=== PATIENT | male | born 1970 | race African-American/Black ===

== ENCOUNTER → 2016-11-21 | Outpatient (CLI) | payer BC ==
--- NOTE | 2016-11-21 19:19 | PN ---
DATE OF SERVICE: 11/21/2016 A 45-year-old gentleman who has been followed in the sleep center for treatment of obstructive sleep apnea/hypopnea syndrome. Recently patient had been diagnosed with the obstructive sleep apnea-hypopnea syndrome and I discussed results of the sleep studies with him in detail. Apnea-hypopnea index 29.1, which is close to severe, with oxygen desaturation to 84.2%. Patient is on treatment with CPAP with a pressure of 10 cm of water. I checked his CPAP unit. Usage is 28 out of 30 nights with 20 out of 30 nights for more than 4 hours. Apnea-hypopnea index reading from the machine is only 0.5 per hour. No snoring with the machine. At the same time, patient still continued to wake up in the morning around 4:00 a.m. instead of 6:45 a.m. [place] Sleepiness Scale is 10. MEDICATIONS: 1. Amaryl. 2. Glucophage. 3. Losartan. During physical exam, patient in no distress. BP 126/71, HR 66, RR 16. Weight 319. Temp 98.0. Oxygen saturation at room air 96%. OROPHARYNX: Low soft palate. NECK: Supple. No JVD. Thyroid is not palpable. LUNGS: Clear to percussion and to auscultation. Good air exchange. No wheezing or rhonchi. HEART: S1, S2 regular. No murmurs, gallops or rubs. ABDOMEN: Soft and nontender. Bowel sounds are present. No organomegaly appreciated. EXTREMITIES: No clubbing or cyanosis. BUS STARTER: Awake, alert, and oriented x3. Cranial nerves 2 to 7 intact. There is no fasciculation or atrophy noted. No focal deficits observed. IMPRESSION: 1. Moderate, close to severe obstructive sleep apnea-hypopnea syndrome on control with continuous positive airway pressure at 10 cm of water. 2. Patient continues to wake up from sleep earlier than he wishes, although no significant amount of periodic limb movements during the sleep study, no significant problem with falling asleep at the beginning of the night, but again, awakenings from the second part of the night with difficulties to re-initiate sleep again. 3. Obesity. 4. Diabetes mellitus. 5. Hypertension. PLAN: 1. Continue treatment with CPAP night for the whole night. Patient benefiting from treatment. 2. Losing weight. 3. Sleep hygiene with regular time in bed from around 10:00 p.m. until 6:00 a.m. 4. Will try small doses of Ambien at bedtime. Usage of short-acting sleeping pills on the second part of the night probably will not work because after awakenings, the patient has only 2 hours before he has to go out of bed. 5. No driving if feeling any sleepiness. Thank you very much for allowing me to participate in the management your patient. Sincerely, Flash Garcia MD, PhD, FAASM. Diplomat of [place] [employer], Sleep Medicine Board by [place] [employer] [place] [employer] Change Analyst of [facility]
== END | disposition home or self-care (01) ==
LOC: SLEEP 14:18
PROVIDERS: ATTEND Internal Medicine
DX: G47.33 Obstructive sleep apnea (adult) (pediatric) (principal); E66.9 Obesity, unspecified; E11.9 Type 2 diabetes mellitus without complications; I10 Essential (primary) hypertension; Z79.899 Other long term (current) drug therapy

== ENCOUNTER → 2017-12-09 | Outpatient (CLI) | payer BC ==
--- NOTE | 2017-12-09 11:09 | XR ---
EXAMINATION TYPE: XR knee complete RT DATE OF EXAM: 12/09/2017 COMPARISON: NONE HISTORY: Pain TECHNIQUE: 3 views are submitted. FINDINGS: There is narrowing of the medial compartment knee joint. Narrowing of the patellofemoral joint noted. Chronic fragmentation of the tibial tubercle seen. Hypertrophic change involving the anterior margin of the patella. Small amount of fluid in the suprapatellar bursa.. Osseous structures are intact. No acute fracture seen. IMPRESSION: 1. No acute fracture or dislocation. 2. Mild osteoarthritis. There is a small amount of fluid in the suprapatellar bursa. If there is conc eliane for internal derangement of the knee correlate with MRI.
== END ==
LOC: RADXRMAIN 10:43
PROVIDERS: ATTEND Internal Medicine
DX: M19.90 Unspecified osteoarthritis, unspecified site (principal)

== ENCOUNTER → 2017-12-27 | Outpatient (CLI) | payer BC ==
--- NOTE | 2017-12-27 16:36 | MR ---
EXAMINATION TYPE: MR knee RT wo con DATE OF EXAM: 12/27/2017 COMPARISON: Plain film 12/09/2017 HISTORY: Right knee pain TECHNIQUE: Multiplanar, multisequence imaging of the right knee is performed without IV contrast. FINDINGS: MEDIAL MENISCUS: Posterior horn of the medial meniscus shows abnormal increased signal which extends the articular surface and is attenuated. Anterior horn is intact. LATERAL MENISCUS: Anterior and posterior horns are intact without tear. CRUCIATE LIGAMENTS: Some increased signal along the course of the anterior cruciate ligament may repr esent a strain near its insertion or possibly partial tear. Posterior cruciate ligament shows abnorma l fluid signal near its origin which may represent a ganglion or possible prior tear COLLATERAL LIGAMENTS: Abnormal increased signal present along the medial collateral ligament and T2-w eighted sequences is compatible with strain or possibly partial tear. I question meniscal capsule sep aration. EXTENSOR MECHANISM: Visualized quadriceps and patellar tendons are intact. EFFUSION: Suprapatellar joint effusion is present. POPLITEAL CYST: Some fluid signal is present along the semimembranosus gastrocnemius bursa region po ssibly due to ruptured Giang's cyst, no discernible mass. 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 Possible strain or partial tear along the cruciate ligaments, medial collateral ligament. There is a joint effusion. Suspect some osteoarthritic change.
== END | disposition home or self-care (01) ==
LOC: RADMRIMAIN 14:05
PROVIDERS: ATTEND Internal Medicine
DX: S83.241A Other tear of medial meniscus, current injury, right knee, initial encounter (principal)

== ENCOUNTER → 2019-01-01 | Outpatient (CLI) | payer BC ==
[2019-01-01 08:54] LABS: Blood Urea Nitrogen 11 mg/dL (9-20)
--- NOTE | 2019-01-01 10:23 | CT ---
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 CT DLP: 2686.60 mGycm, Automated Exposure Control for Dose Reduction was Utilized. CONTRAST: CT scan of the abdomen and pelvis is performed with oral and with IV Contrast, patient injected with 100 ml mL of Isovue 300. FINDINGS: LUNG BASES: No significant abnormality is appreciated. LIVER/GB: Liver is diffusely low dense suggesting fatty infiltration. PANCREAS: No significant abnormality is seen. SPLEEN: No significant abnormality is seen. ADRENALS: No significant abnormality is seen. KIDNEYS:. Simple appearing 2.1 cm cyst anteriorly upper pole level left kidney. BOWEL: Oral contrast reaches level of the transverse colon. No suspicious small or large bowel dilata tion. PROSTATE/SEMINAL VESICLES: No gross abnormality seen. LYMPH NODES: No greater than 1cm abdominal or pelvic lymph nodes are appreciated. OSSEOUS STRUCTURES: Moderate to severe disc space narrowing with endplate sclerosis and moderate spur ring L5-S1 level. OTHER: Large fat-containing umbilical hernia is present axial image 62. In the right posterior lateral lower abdominal subcutaneous fat. Poorly defined heterogeneous hyperde nse soft tissue mass measuring 8.9 cm transversely by by 0.2 cm AP diameter X image 57 by approximate ly 6.2 cm craniocaudal dimension coronal image 95 with smaller adjacent soft tissue nodules particula rly along medial inferior aspect , one of largest nodules measures 3.5 x 2.2 cm axial image 64. One n odule gets close to the lateral thoracic muscles axial image 65. No suspicious intraperitoneal or ret roperitoneal masses are identified. IMPRESSION: 1. Presumed posterior right mid abdominal subcutaneous irregular soft tissue mass with satellite nodu les reflects known neoplasm. No suspicious intra-abdominal or intrapelvic masses or adenopathy noted.
== END | disposition home or self-care (01) ==
LOC: RADCTMAIN 07:22
PROVIDERS: ATTEND Internal Medicine
DX: D20.0 Benign neoplasm of soft tissue of retroperitoneum (principal)
CPT/HCPCS: 82565; 84520; 74177; 36415; Q9967

== ENCOUNTER → 2019-09-03 | Outpatient (CLI) | payer BC ==
[2019-09-03 08:33] LABS: Basophils % (A) 1 %; Eosinophils # (A) 0.3 k/uL (0-0.7); Eosinophils % (A) 4 %; HGB 16.2 gm/dL (13.0-17.5); Lymphocytes # (A) 2.7 k/uL (1.0-4.8); Lymphocytes % (A) 44 %; MCH 30.8 pg (25.0-35.0); MCHC 33.8 g/dL (31.0-37.0); Mean Platelet Volume 8.2; Monocytes # (A) 0.4 k/uL (0-1.0); Monocytes % (A) 6 %; Neutrophils # (A) 2.6 k/uL (1.3-7.7); Neutrophils % (A) 44 %; Platelet Count 195 k/uL (150-450); RBC 5.27 m/uL (4.30-5.90); RDW 13.2 % (11.5-15.5); WBC 6.1 k/uL (3.8-10.6)
[2019-09-03 16:21] LABS: African American GFR (CKD) 92.8 (60.0-200.0); Albumin 4.4 g/dL (3.80-4.90); Albumin/Globulin Ratio 1.76 (1.60-3.17); Anion Gap 6.9 mmol/L (4.00-12.00); BUN/Creat Ratio 9.09 Ratio (12.00-20.00); Calcium 9.5 mg/dL (8.7-10.3); Carbon Dioxide 26.1 mmol/L (21.6-31.8); Chol/HDL Ratio 7.45; Globulin 2.5 g/dL (1.6-3.3); LDL Cholesterol,Calculated 180.6 mg/dL (0.0-131.0); Non-African American GFR(CKD) 80.1 (60.0-200.0); Potassium 4.5 mmol/L (3.5-5.5); Total Bilirubin 0.8 mg/dL (0.2-1.2); Total Protein 6.9 g/dL (6.2-8.2); VLDL Calculation 19.4 mg/dL (5.00-40.00)
[2019-09-03 16:53] LABS: Hemoglobin A1C 9.8 % (4.0-6.0)
== END | disposition home or self-care (01) ==
LOC: LABWHC1 07:35
PROVIDERS: ATTEND Internal Medicine
DX: I10 Essential (primary) hypertension (principal); E78.2 Mixed hyperlipidemia; E11.9 Type 2 diabetes mellitus without complications
CPT/HCPCS: 36415; 80053; 80061; 82550; 83036; 84443; 85025

== ENCOUNTER 2023-08-27 07:20 | Day surgery (SDC) | payer BC ==
[~2023-08-27 07:20] MED LIST: LACTATED RINGERS 1,000 ML IV SCH; LIDOCAINE 1% (10MG/ML) FOR IV START INTRADERMA PRN
[2023-08-27 07:58] VITALS: TEMP 96.9
[2023-08-27 08:00] LABS: Glucose,Whole Blood 267 mg/dL (70-110)
--- NOTE | 2023-08-27 08:20 | P.GSHP ---
History of Present Illness H&P Date: 08/27/23 CHIEF COMPLAINT: Colon screen HISTORY OF PRESENT ILLNESS: The patient is a 52-year-old male who presents for colon screen. Lower endoscopy was offered for further evaluation and management. PAST MEDICAL HISTORY: Please see list. PAST SURGICAL HISTORY: Please see list. MEDICATIONS: Please see list. ALLERGIES: Please see list. SOCIAL HISTORY: No illicit drug use FAMILY HISTORY: No reports of Crohn disease or ulcerative colitis. REVIEW OF ORGAN SYSTEMS: CONSTITUTIONAL: No reports of fevers or chills. PHYSICAL EXAM: VITAL SIGNS: Stable GENERAL: Well-developed pleasant in no acute distress. HEENT: No scleral icterus. Extraocular movements grossly intact. Moist buccal mucosa. NECK: Supple without lymphadenopathy. CHEST: Unlabored respirations. Equal bilateral excursions. CARDIOVASCULAR: Regular rate and rhythm. Distal 2+ pulses. ABDOMEN: Soft, nontender, nondistended. MUSCULOSKELETAL: No clubbing, cyanosis, or edema. ASSESSMENT: 1. Colon screen. PLAN: 1. Recommend proceeding with a lower endoscopy Past Medical History Past Medical History: Diabetes Mellitus Additional Past Medical History / Comment(s): arthritis to knees. cpap History of Any Multi-Drug Resistant Organisms: None Reported Past Surgical History: No Surgical Hx Reported Additional Past Surgical History / Comment(s): wisdom teeth removed, Past Anesthesia/Blood Transfusion Reactions: No Reported Reaction Past Drug Use History: None Reported - Past Family History Mother Family Medical History: Diabetes Mellitus Medications and Allergies Home Medications Medication Instructions Recorded Confirmed Type Atorvastatin Calcium [Lipitor] 80 mg PO DAILY 08/22/23 08/22/23 History Dulaglutide [Trulicity] 1.5 mg SQ MO 08/22/23 08/22/23 History Glimepiride 4 mg PO BID 08/22/23 08/22/23 History Losartan/Hydrochlorothiazide 1 tab PO DAILY 08/22/23 08/22/23 History [Losartan-Hctz 100-12.5 mg Tab] Unk Multi Vitamin 1 tab PO DAILY 08/22/23 08/22/23 History metFORMIN HCL 1,000 mg PO BID 08/22/23 08/22/23 History Allergies Allergy/AdvReac Type Severity Reaction Status Date / Time No Known Allergies Allergy Verified 08/27/23 07:41 Surgical - Exam Vital Signs Temp Pulse Resp BP Pulse Ox 96.9 F L 68 16 131/72 96 08/27/23 07:47 08/27/23 07:47 08/27/23 07:47 08/27/23 07:47 08/27/23 07:47 Results - Labs Abnormal Lab Results - Last 24 Hours (Table) 08/27/23 Range/Units 07:56 POC Glucose (mg/dL) 267 H (70-110) mg/dL
[2023-08-27] MEDS ORDERED: PROPOFOL 10 MG/ML 20 ML VIAL IV ONE (08:45)
--- NOTE | 2023-08-27 09:48 | P.PCN ---
Date of Procedure: 08/27/23 Description of Procedure: PREOPERATIVE DIAGNOSIS: Colonoscopy screening. POSTOPERATIVE DIAGNOSIS: Colonoscopy screening. Internal and external hemorrhoids, grade 3 OPERATION: Colonoscopy to the cecum, ileocecal valve and appendiceal orifice. SURGEON: Bety Vizcaino MD. ANESTHESIA: MAC. INDICATIONS: The patient is a 52-year-old male who presents for his first colonoscopy screening. Benefits and risks were described and informed consent was obtained. DESCRIPTION OF PROCEDURE: The patient had undergone Sutab prep. The patient had been brought into the operating room and laid in the left lateral decubitus position. After adequate intravenous sedation, the rectum was examined with 2% lidocaine jelly. External hemorrhoids were encountered. The rectal tone was within normal limits. No lesions were palpated in the rectal vault. An Olympus colonoscope was advanced however the colon was highly redundant. Despite abdominal wall pressure, the cecum was not well visualized. Scope was advanced to the ascending colon. The prep was excellent. No scattered diverticulosis was encountered. No colonic polyps were found. No evidence of focal colitis was found. Retroflexion of the scope demonstrated grade 3 internal hemorrhoids without active bleeding or inflammation. The colon was desufflated. The patient had tolerated the procedure well. Withdrawal time was over 6 minutes. FINDINGS: Aronchick preparation quality scale 1 (1-5) Internal hemorrhoids, grade 3 External prolapsed hemorrhoids, grade 3 No arteriovenous malformations. Highly redundant colon prohibiting view of cecum No adenomatous polyps. No focal colitis. RECOMMENDATIONS: Lower endoscopy in 5 years, 2027 Completion endoscopy for cecum due to high risk of neoplastic process Plan - Discharge Summary Discharge Rx Participant: No New Discharge Prescriptions: Continue Dulaglutide [Trulicity] 1.5 mg SQ MO Glimepiride 4 mg PO BID Unk Multi Vitamin 1 tab PO DAILY Atorvastatin Calcium [Lipitor] 80 mg PO DAILY Losartan/Hydrochlorothiazide [Losartan-Hctz 100-12.5 mg Tab] 1 tab PO DAILY metFORMIN HCL 1,000 mg PO BID Discharge Medication List Atorvastatin Calcium [Lipitor] 80 mg PO DAILY 08/22/23 [History] Dulaglutide [Trulicity] 1.5 mg SQ MO 08/22/23 [History] Glimepiride 4 mg PO BID 08/22/23 [History] Losartan/Hydrochlorothiazide [Losartan-Hctz 100-12.5 mg Tab] 1 tab PO DAILY 08/22/23 [History] Unk Multi Vitamin 1 tab PO DAILY 08/22/23 [History] metFORMIN HCL 1,000 mg PO BID 08/22/23 [History] Follow up Appointment(s)/Referral(s): Bety Vizcaino MD [STAFF PHYSICIAN] - 09/16/23 3:30 pm Patient Instructions/Handouts: Barium Enema (DC) Activity/Diet/Wound Care/Special Instructions: Repeat colonoscopy 5 years 2027 Discharge Disposition: HOME SELF-CARE
[2023-08-27 09:52] VITALS: BP 131/93; PULSE 65; RESP 18
--- NOTE | 2023-08-27 11:34 | FL ---
EXAMINATION TYPE: FL barium enema w air contrast DATE OF EXAM: 08/27/2023 11:22 AM CLINICAL INDICATION:Male, 52 years old with history of Incomplete colon to cecum, NO BIOPSIES; COMPARISON: CT 01/01/2019 TECHNIQUE: The procedure was explained and patient history elicited. All patient questions were answ ered prior to beginning. Multiple spot fluoroscopic images of the colon were obtained after the recta l administration of liquid barium as the contrast agent. Multiple postprocedural overhead images, w ere obtained and reviewed. Fluoroscopic time: 1.28 min Fluoroscopic images:0 Radiographs taken: 43 DAP: Reported [id number] FINDINGS: The extruder tender abdominal radiograph demonstrates a normal bowel gas pattern without dilated loo ps of small or large bowel. There is no evidence for organomegaly or pneumoperitoneum. No abnormal calcifications. The visualized osseous structures are intact. The colon demonstrates normal course and contour without evidence of focal stricture, internal fillin g defects, or abnormal outpouching. Views of the cecum with manual compression are unremarkable. Postevacuation images are unremarkable. IMPRESSION: No evidence for abnormal stricture or mass lesion within the sigmoid colon.
== END 2023-08-27 10:10 | disposition home or self-care (01) ==
LOC: ORWHC2ENDO 07:20
PROVIDERS: ATTEND Surgery Plastic and Reconstructive Surgery
DX: Z12.11 Encounter for screening for malignant neoplasm of colon (principal); K64.2 Third degree hemorrhoids; K64.4 Residual hemorrhoidal skin tags; E11.9 Type 2 diabetes mellitus without complications; M19.90 Unspecified osteoarthritis, unspecified site; I10 Essential (primary) hypertension; E78.5 Hyperlipidemia, unspecified; G47.33 Obstructive sleep apnea (adult) (pediatric); E66.01 Morbid (severe) obesity due to excess calories; Z83.3 Family history of diabetes mellitus; Z79.84 Long term (current) use of oral hypoglycemic drugs; Z79.899 Other long term (current) drug therapy; Z68.38 Body mass index [BMI] 38.0-38.9, adult
CPT/HCPCS: 74280; 45378; J2704

== ENCOUNTER → 2024-01-31 | Outpatient (CLI) | payer BC ==
[2024-01-31 10:16] LABS: Appearance,Urine Clear (Clear); Bilirubin,Urine Negative (Negative); Blood,Urine Negative (Negative); Color,Urine Light Yellow; Glucose,Urine (UA) Negative (Negative); Ketones,Urine Negative (Negative); Leukocyte Esterase,Urine Negative (Negative); Nitrite,Urine Negative (Negative); Protein,Urine Negative (Negative)
[2024-01-31 13:54] LABS: Basophils # (A) 0.08 X 10*3/uL (0.00-0.10); Basophils % (A) 1.2 %; Eosinophils % (A) 6.2 %; HGB 16.4 g/dL (13.0-17.0); Lymphocytes # (A) 2.82 X 10*3/uL (0.90-5.00); Lymphocytes % (A) 43.7 %; MCH 30.1 pg (27.0-32.0); MCHC 31.5 g/dL (32.0-37.0); MCV 95.6 FL (80.0-97.0); Mean Platelet Volume 12.1 FL (9.5-12.2); Monocytes # (A) 0.57 X 10*3/uL (0.20-1.00); Monocytes % (A) 8.8 %; NRBC Per 100 WBC 0.02 X 10*3/uL (0.00-0.01); Neutrophils # (A) 2.56 X 10*3/uL (1.80-7.70); Neutrophils % (A) 39.8 %; Platelet Count 199 X 10*3/uL (140-440); RBC 5.44 X 10*6/uL (4.40-5.60); RDW 13.4 % (11.5-14.5); WBC 6.45 X 10*3/uL (4.50-10.00)
[2024-01-31 13:57] LABS: Chol/HDL Ratio 5.15 Ratio; LDL Cholesterol,Calculated 92.3 mg/dL (0.0-131.0); Magnesium 1.6 mg/dL (1.5-2.4); Prostate Specific Antigen 0.46 ng/mL (0.000-3.500); Uric Acid 5.4 mg/dL (3.7-8.7)
[2024-01-31 14:09] LABS: ALT 34 U/L (10-49); AST 35 U/L (14-35); Albumin 4.4 g/dL (3.8-4.9); Albumin/Globulin Ratio 1.69 Ratio (1.60-3.17); Alkaline Phosphatase 121 U/L (41-126); BUN/Creat Ratio 8.75 Ratio (12.00-20.00); Blood Urea Nitrogen 10.5 mg/dL (9.0-27.0); Calcium 9.3 mg/dL (8.7-10.3); Carbon Dioxide 23.5 mmol/L (21.6-31.8); Chloride 105 mmol/L (96-109); Globulin 2.6 g/dL (1.6-3.3); Glucose 129 mg/dL (70-110); Potassium 4.4 mmol/L (3.5-5.5); Sodium 141 mmol/L (135-145); Total Bilirubin 0.8 mg/dL (0.3-1.2)
[2024-01-31 20:54] LABS: Microalbumin Creatinine Ratio <7 mg/g Cr (0-30)
== END | disposition home or self-care (01) ==
LOC: LABWHC1 07:58
PROVIDERS: ATTEND Internal Medicine
DX: Z00.00 Encounter for general adult medical examination without abnormal findings (principal); I10 Essential (primary) hypertension; E78.2 Mixed hyperlipidemia; E11.65 Type 2 diabetes mellitus with hyperglycemia; N40.0 Benign prostatic hyperplasia without lower urinary tract symptoms; G47.33 Obstructive sleep apnea (adult) (pediatric)
CPT/HCPCS: 36415; 80053; 80061; 81003; 82043; 82306; 82570; 83036; 83735; 84153; 84443; 84550; 85025

== ENCOUNTER → 2024-04-30 | Outpatient (CLI) | payer BC ==
[2024-04-30 10:13] LABS: Basophils # (A) 0.06 X 10*3/uL (0.00-0.10); Basophils % (A) 0.8 %; Eosinophils # (A) 0.38 X 10*3/uL (0.04-0.35); Eosinophils % (A) 5.3 %; HCT 49.2 % (39.6-50.0); HGB 16.2 g/dL (13.0-17.0); Lymphocytes # (A) 3.22 X 10*3/uL (0.90-5.00); Lymphocytes % (A) 44.8 %; MCH 29.7 pg (27.0-32.0); MCHC 32.9 g/dL (32.0-37.0); MCV 90.1 FL (80.0-97.0); Mean Platelet Volume 12.2 FL (9.5-12.2); Monocytes # (A) 0.49 X 10*3/uL (0.20-1.00); Monocytes % (A) 6.8 %; NRBC Per 100 WBC 0 X 10*3/uL (0.00-0.01); Neutrophils # (A) 3.01 X 10*3/uL (1.80-7.70); Platelet Count 188 X 10*3/uL (140-440); RBC 5.46 X 10*6/uL (4.40-5.60); WBC 7.18 X 10*3/uL (4.50-10.00)
[2024-04-30 10:36] LABS: ALT 38 U/L (10-49); AST 30 U/L (14-35); Albumin 4.5 g/dL (3.8-4.9); Albumin/Globulin Ratio 1.61 Ratio (1.60-3.17); Alkaline Phosphatase 137 U/L (41-126); Calcium 9.4 mg/dL (8.7-10.3); Carbon Dioxide 22.5 mmol/L (21.6-31.8); Chloride 98 mmol/L (96-109); Chol/HDL Ratio 6.68 Ratio; Globulin 2.8 g/dL (1.6-3.3); Glucose 208 mg/dL (70-110); Magnesium 1.8 mg/dL (1.5-2.4); Potassium 4.7 mmol/L (3.5-5.5); Sodium 135 mmol/L (135-145); Total Bilirubin 1.2 mg/dL (0.3-1.2); Total Protein 7.3 g/dL (6.2-8.2)
[2024-04-30 15:30] LABS: Appearance,Urine Clear (Clear); Bilirubin,Urine Negative (Negative); Blood,Urine Negative (Negative); Color,Urine Yellow (Yellow); Ketones,Urine Trace (Negative); Nitrite,Urine Negative (Negative); Specific Gravity,Urine 1.021 (1.001-1.030)
[2024-04-30 17:31] LABS: Microalbumin Creatinine Ratio <6 mg/g Cr (0-30)
== END | disposition home or self-care (01) ==
LOC: LABWHC1 05:33
PROVIDERS: ATTEND Internal Medicine
DX: I10 Essential (primary) hypertension (principal); E78.2 Mixed hyperlipidemia; E11.65 Type 2 diabetes mellitus with hyperglycemia
CPT/HCPCS: 36415; 80053; 80061; 81003; 82043; 82570; 83036; 83519; 83525; 83735; 84443; 85025

== ENCOUNTER → 2024-07-02 | Outpatient (CLI) | payer BC | END | disposition home or self-care (01) | LOC: LABWHC1 08:07 | PROVIDERS: ATTEND Internal Medicine | DX: E11.65 Type 2 diabetes mellitus with hyperglycemia (principal) | CPT/HCPCS: 36415; 83036 ==

== ENCOUNTER → 2024-08-28 | Outpatient (CLI) | payer BC ==
[2024-08-28 12:57] LABS: HCT 46.9 % (39.6-50.0); HGB 15.3 g/dL (13.0-17.0); MCH 29.5 pg (27.0-32.0); MCHC 32.6 g/dL (32.0-37.0); MCV 90.5 FL (80.0-97.0); Mean Platelet Volume 11.6 FL (9.5-12.2); NRBC Per 100 WBC 0 X 10*3/uL (0.00-0.01); Platelet Count 178 X 10*3/uL (140-440); RBC 5.18 X 10*6/uL (4.40-5.60); RDW 13.3 % (11.5-14.5); WBC 7.14 X 10*3/uL (4.50-10.00)
[2024-08-28 12:58] LABS: Basophils # (A) 0.05 X 10*3/uL (0.00-0.10); Basophils % (A) 0.7 %; Eosinophils # (A) 0.47 X 10*3/uL (0.04-0.35); Eosinophils % (A) 6.6 %; Lymphocytes # (A) 3.31 X 10*3/uL (0.90-5.00); Lymphocytes % (A) 46.4 %; Monocytes # (A) 0.63 X 10*3/uL (0.20-1.00); Monocytes % (A) 8.8 %; Neutrophils # (A) 2.67 X 10*3/uL (1.80-7.70); Neutrophils % (A) 37.4 %
[2024-08-28 13:25] LABS: Microalbumin Creatinine Ratio <35 mg/g Cr (0-30); Urine Creatinine 34.5 mg/dL (39.0-259.0)
[2024-08-28 13:41] LABS: ALT 31 U/L (10-49); AST 28 U/L (14-35); Albumin 4.1 g/dL (3.8-4.9); Albumin/Globulin Ratio 1.71 Ratio (1.60-3.17); Alkaline Phosphatase 100 U/L (41-126); BUN/Creat Ratio 14.36 Ratio (12.00-20.00); Blood Urea Nitrogen 15.8 mg/dL (9.0-27.0); Calcium 9.2 mg/dL (8.7-10.3); Carbon Dioxide 23.7 mmol/L (21.6-31.8); Chloride 103 mmol/L (96-109); Chol/HDL Ratio 3.91 Ratio; Creatine Kinase 1109 U/L (35-257); Globulin 2.4 g/dL (1.6-3.3); Glucose 105 mg/dL (70-110); LDL Cholesterol,Calculated 63.6 mg/dL (0.0-131.0); Magnesium 1.6 mg/dL (1.5-2.4); Potassium 4.2 mmol/L (3.5-5.5); Sodium 139 mmol/L (135-145); Total Bilirubin 0.8 mg/dL (0.3-1.2); Total Protein 6.5 g/dL (6.2-8.2); VLDL Calculation 11.62 mg/dL (5.00-40.00)
[2024-08-28 13:50] LABS: Appearance,Urine Clear (Clear); Bilirubin,Urine Negative (Negative); Blood,Urine Negative (Negative); Color,Urine Yellow (Yellow); Ketones,Urine Negative (Negative); Nitrite,Urine Negative (Negative); Specific Gravity,Urine 1.006 (1.001-1.030)
== END | disposition home or self-care (01) ==
LOC: LABWHC1 07:37
PROVIDERS: ATTEND Internal Medicine
DX: I10 Essential (primary) hypertension (principal); E11.65 Type 2 diabetes mellitus with hyperglycemia; E78.2 Mixed hyperlipidemia; G47.33 Obstructive sleep apnea (adult) (pediatric)
CPT/HCPCS: 36415; 80053; 80061; 81003; 82043; 82306; 82550; 82570; 83036; 83735; 84443; 85025

== ENCOUNTER → 2025-01-15 | Outpatient (CLI) | payer BC | END | disposition home or self-care (01) | LOC: LABWHC1 07:50 | PROVIDERS: ATTEND Internal Medicine | DX: R74.8 Abnormal levels of other serum enzymes (principal) | CPT/HCPCS: 36415; 82085; 82550; 85652 ==

== ENCOUNTER → 2025-04-07 | Outpatient (CLI) | payer BC ==
[2025-04-07 11:51] LABS: Basophils # (A) 0.06 X 10*3/uL (0.00-0.10); Basophils % (A) 0.9 %; Eosinophils # (A) 0.35 X 10*3/uL (0.04-0.35); Eosinophils % (A) 5.2 %; HCT 46.3 % (39.6-50.0); HGB 14.8 g/dL (13.0-17.0); Immature Grans, Automated 0.10 %; Lymphocytes # (A) 2.92 X 10*3/uL (0.90-5.00); Lymphocytes % (A) 43.3 %; MCH 28.8 pg (27.0-32.0); MCHC 32.0 g/dL (32.0-37.0); MCV 90.1 FL (80.0-97.0); Monocytes # (A) 0.58 X 10*3/uL (0.20-1.00); Monocytes % (A) 8.6 %; NRBC Per 100 WBC 0 X 10*3/uL (0.00-0.01); Neutrophils # (A) 2.82 X 10*3/uL (1.80-7.70); Neutrophils % (A) 41.9 %; Platelet Count 211 X 10*3/uL (140-440); RBC 5.14 X 10*6/uL (4.40-5.60); RDW 13.2 % (11.5-14.5); WBC 6.74 X 10*3/uL (4.50-10.00)
[2025-04-07 13:10] LABS: ALT 44 U/L (10-49); AST 40 U/L (14-35); Albumin 4.1 g/dL (3.8-4.9); Albumin/Globulin Ratio 1.46 Ratio (1.60-3.17); Alkaline Phosphatase 92 U/L (41-126); Anion Gap 12.20 mmol/L (4.00-12.00); BUN/Creat Ratio 14.00 Ratio (12.00-20.00); Blood Urea Nitrogen 16.8 mg/dL (9.0-27.0); Calcium 9.1 mg/dL (8.7-10.3); Carbon Dioxide 21.8 mmol/L (21.6-31.8); Chloride 102 mmol/L (96-109); Cholesterol 229.00 mg/dL (0.00-200.00); Creatine Kinase 1843 U/L (35-257); Globulin 2.8 g/dL (1.6-3.3); Glucose 144 mg/dL (70-110); HDL Cholesterol 29.60 mg/dL (40.00-60.00); LDL Cholesterol,Calculated 179.4 mg/dL (0.0-131.0); Magnesium 1.7 mg/dL (1.5-2.4); Potassium 4.4 mmol/L (3.5-5.5); Prostate Specific Antigen 0.50 ng/mL (0.000-3.500); Rheumatoid Factor, Qnt <15 IU/mL (0-15); Sodium 136 mmol/L (135-145); Total Protein 6.9 g/dL (6.2-8.2); Triglycerides 100.00 mg/dL (0.00-149.00); Uric Acid 6.1 mg/dL (3.7-8.7); VLDL Calculation 20.00 mg/dL (5.00-40.00)
== END | disposition home or self-care (01) ==
LOC: LABWHC1 06:25
PROVIDERS: ATTEND Internal Medicine
DX: G47.33 Obstructive sleep apnea (adult) (pediatric) (principal); I10 Essential (primary) hypertension; E78.2 Mixed hyperlipidemia; N40.0 Benign prostatic hyperplasia without lower urinary tract symptoms; E11.65 Type 2 diabetes mellitus with hyperglycemia; R74.8 Abnormal levels of other serum enzymes
CPT/HCPCS: 36415; 80053; 80061; 82085; 82306; 82550; 83036; 83735; 84153; 84443; 84550; 85025; 85652; 86038; 86140; 86431